=== PATIENT | female | born 1980 | race Caucasian/White ===

== ENCOUNTER 2019-04-30 22:47 | Emergency (ER) | payer MEDICAID, OTHER ==
[2019-04-30] MEDS ORDERED: ONDANSETRON HCL 4 MG/2 ML SOL IV ONE (22:49)
[2019-04-30] MEDS ORDERED: SODIUM CHLORIDE 0.9% FLUSH 10 ML SOL IV PRN (22:49)
[2019-04-30] MEDS ORDERED: ONDANSETRON HCL 4 MG/2 ML SOL ONE (22:50)
[2019-04-30] MEDS ORDERED: SODIUM CHLORIDE 0.9% 1000ML 1,000 ML IV SCH (23:00)
[2019-04-30 23:06] LABS: BASOPHILS % (AUTO) 2 % (0-3); EOSINOPHILS % (AUTO) 1 % (0-9); HEMATOCRIT 43 % (35-47); HEMOGLOBIN 14.2 gm/dl (12.0-15.5); LYMPHOCYTES % (AUTO) 25.6 % (10-50); MEAN CORPUSCULAR HEMOGLOBIN 31.5 pg (27.0-32.0); MEAN CORPUSCULAR HGB CONC 33.4 gm/dl (32.0-36.0); MEAN CORPUSCULAR VOLUME 94 fL (81-99); MONOCYTES % (AUTO) 5.5 % (0-12); NEUTROPHILS % (AUTO) 66.1 % (37-80)
[2019-04-30] MEDS ORDERED: METOCLOPRAMIDE HYDROCHLORIDE 5 MG/ML SOL ONE (23:14)
[2019-04-30 23:19] VITALS: TEMP 97.3
[2019-04-30 23:19] LABS: ALKALINE PHOSPHATASE 87 IU/L (46-116); ALT 24 IU/L (14-63); AST 14 IU/L (15-37); BILIRUBIN,TOTAL 0.2 mg/dl (0.2-1.0); BLOOD UREA NITROGEN 10 mg/dl (7-18); CALCIUM 8.2 mg/dl (8.5-10.1); CARBON DIOXIDE 23.8 mEq/L (21-32); CHLORIDE 102 mMol/L (98-107); CREATININE 1.01 mg/dl (0.60-1.00); GLUCOSE 156 mg/dl (74-106); SODIUM 139 mMol/L (136-145); TOTAL PROTEIN 7.4 gm/dl (6.4-8.2)
[2019-04-30] MEDS ORDERED: METOCLOPRAMIDE HYDROCHLORIDE 5 MG/ML SOL IV ONE (23:19)
[2019-04-30 23:20] LABS: ACETAMINOPHEN < 2 ug/ml (10-30); ALCOHOL 0.102 gm/dl (0.000-0.08)
[2019-04-30 23:22] LABS: POTASSIUM 2.7 mMol/L (3.5-5.1)
[2019-04-30] MEDS ORDERED: POTASSIUM CHLORIDE 2 MEQ/ML 60 MEQ, LIDOCAINE HCL 1% MDV 2 ML in SODIUM CHLORIDE 0.9% 1... IV ONE (23:23)
[2019-04-30 23:30] VITALS: RESP 24
[2019-04-30] MEDS ORDERED: POTASSIUM CHLORIDE 2 MEQ/ML SOL IV ONE (23:48)
[2019-04-30] MEDS ORDERED: LIDOCAINE HCL 1% MPF 30 SOL ONE (23:50)
[2019-05-01 00:02] VITALS: PULSE 118; O2SAT 97
[2019-05-01 00:58] VITALS: BP 127/84
== END 2019-05-01 00:25 | disposition short-term general hospital (02) | DRG 897 ==
LOC: ED 22:47
DX: F10.129 Alcohol abuse with intoxication, unspecified (principal); Y90.5 Blood alcohol level of 100-119 mg/100 ml
CPT/HCPCS: 70450; 80053; 80307; 83735; 85025; 93005; 96365; 96374; 96375; 99283; 99285; J2405; J2765; J3480; A6402; J2001

== ENCOUNTER 2019-05-04 09:20 | Emergency (ER) | payer OTHER ==
[2019-05-04 09:35] VITALS: RESP 18; TEMP 98.3
[2019-05-04 09:57] VITALS: PULSE 74
[2019-05-04 09:57] LABS: BASOPHILS % (AUTO) 1 % (0-3); EOSINOPHILS % (AUTO) 2 % (0-9); HEMATOCRIT 42 % (35-47); HEMOGLOBIN 14.4 gm/dl (12.0-15.5); LYMPHOCYTES % (AUTO) 20.7 % (10-50); MEAN CORPUSCULAR HGB CONC 34.1 gm/dl (32.0-36.0); MEAN CORPUSCULAR VOLUME 94 fL (81-99); NEUTROPHILS % (AUTO) 69.6 % (37-80)
[2019-05-04 10:14] LABS: ALBUMIN 3.6 gm/dl (3.4-5.0); BILIRUBIN,TOTAL 0.4 mg/dl (0.2-1.0); CALCIUM 8.6 mg/dl (8.5-10.1); CARBON DIOXIDE 28.3 mEq/L (21-32); CREATININE 0.95 mg/dl (0.60-1.00); POTASSIUM 4.2 mMol/L (3.5-5.1); TOTAL PROTEIN 6.9 gm/dl (6.4-8.2)
[2019-05-04 10:40] VITALS: BP 149/83; O2SAT 97
== END 2019-05-04 10:54 | disposition home or self-care (01) | DRG 880 ==
LOC: ED 09:20
DX: F41.9 Anxiety disorder, unspecified (principal); R51 Headache; H53.8 Other visual disturbances
CPT/HCPCS: 36415; 80053; 85025; 93005; 99283